=== PATIENT | female | born 1995 | race Caucasian/White ===

== ENCOUNTER → 2016-08-04 | Outpatient (CLI) | payer OTHER ==
--- NOTE | 2016-08-04 16:02 | MAMMOGRAPHY REPORT ---
ULTRASOUND OF LEFT BREAST: 08/04/2016 CLINICAL HISTORY: The patient reports a new palpable left breast lump. COMPARISON: No prior exams were available for comparison. TECHNIQUE: Real-time targeted ultrasound of the left breast was performed. FINDINGS: Real-time, high resolution targeted ultrasound was performed of the area of the palpable l ump pointed out by the patient, in the left breast at 8:00, 3 cm from the nipple. At the site of the palpable lump there is an oval circumscribed hypoechoic 1.7 x 1.2 x 1.5 cm mass. Some of the margin s are circumscribed although some of the margins are not well seen on the exam. The mass is indeterm inant and ultrasound-guided biopsy is recommended for further evaluation. IMPRESSION: ACR BI-RADS CATEGORY 4A: LOW SUSPICION FOR MALIGNANCY - FOLLOW-UP RECOMMENDED Hypoechoic 1.7 cm mass at the site of the palpable lump in the left breast at 8:00. The mass is inde terminate and ultrasound guided core needle biopsy is recommended for further evaluation. This may r epresent a fibroadenoma. A phone call was made to the physician's office to confirm faxed results were received. The patient was verbally notified of the results. She tentatively scheduled the biopsy before leaving the depart ment. Kalyn Reese M.D. /:08/04/2016 13:56:44 Manager Route: Mary MORRISSEY)(Julita), [facility] letter sent: Abnormal 4/5 BI-RADS Code: ACR BI-RADS Category 4A: Low Suspicion For Malignancy
== END | disposition home or self-care (01) ==
LOC: C.MAMM 13:41
PROVIDERS: ATTEND Internal Medicine
DX: N63 Unspecified lump in breast (principal)